=== PATIENT | female | born 1975 | race American Indian/Alaskan Native ===

== ENCOUNTER 2022-03-05 08:23 | Observation (INO) | payer BC, OTHER ==
--- NOTE | 2022-03-02 11:11 | History and Physical Report ---
History of Present Illness History of present illness: 47 yo with pelvic pain and menorrhagia. PT with pelvic pain for around 1- 2 years that is getting worse and she notes it daily, even without her menses. Positive dysmenorrhea. She also notes heavy menses for 7 days each month. No metrorrhagia. That has also been for at least a year. on U/S uterus was WNL except it was 13 cm long and had a questionable finding suggesting a retained "IUD" deep in the myometrium. PT had a BTL in 2005 and has no h/o IUD placement. EMBx attempted in the office but could not get past the internal os. She has also seen her former doctor and noted bruises on her body but only when she get her menses. She says blood work was done but was WNL per pt. Past History Past Medical History: hypertension Past Surgical History: breast surgery (breast reduction), cholecystectomy, other (BTL, umbilical hernia repair.) Family/Genetic History: other (breast/ovarian ca) Social history: no significant social history Medications and Allergies Allergies Allergy/AdvReac Type Severity Reaction Status Date / Time No Known Allergies Allergy Verified 02/25/22 15:23 Home Medications Medication Instructions Recorded Confirmed Last Taken Type amLODIPine [Norvasc] 10 mg PO DAILY 02/25/22 02/25/22 Unknown History hydroCHLOROthiazide [Hctz] 12.5 mg PO QDAY 02/25/22 02/25/22 Unknown History Review of Systems All systems: negative (except HPI) - Physical Exam Cardiovascular: Regular rate, Normal S1, Normal S2 Lungs: Positive: Clear to auscultation, Normal air movement Abdomen: Positive: normal appearance, soft. Negative: tenderness Genitourinary (Female): Positive: normal external genitalia Vulva: both: normal Vagina: Positive: normal moisture. Negative: discharge Cervix: Negative: lesion, discharge Uterus: Positive: enlarged Adnexa: right: tenderness Results Result Diagrams: 03/02/22 10:55 03/02/22 10:59 All other labs normal. Assessment and Plan - Patient Problems (1) Menorrhagia Status: Acute Plan to address problem: PT is for RAH and B/L salpingoophrectomy on 03/05. Pt fully consented for surgery. R/B/A d/w pt including possibility that final path can show malignancy and further surgery would be needed and possibility of needing to do a SUMEET if the manipulator cannot be entered into the uterine cavity. PT also aware and accepts that BSO will result in surgical menopause. PT understands and accepts these and agrees to proceed with surgery. All questions answered. (2) Pelvic pain Status: Acute
[2022-03-02 11:27] LABS: Basophils % (Auto) 0.3 % (0.0-1.8); Eosinophils # (Auto) 0.2 K/mm3 (0.0-0.4); Hematocrit 38.4 % (30.3-42.9); Hemoglobin 12.5 gm/dl (10.1-14.3); Lymphocytes # (Auto) 1.7 K/mm3 (1.2-5.4); Lymphocytes % (Auto) 38.7 % (13.4-35.0); Mean Corpuscular HGB Conc 33 % (30-34); Mean Corpuscular Volume 94 fl (79-97); Monocytes # (Auto) 0.2 K/mm3 (0.0-0.8); Monocytes % (Auto) 5.3 % (0.0-7.3); Platelet Count 279 K/mm3 (140-440); Red Blood Count 4.07 M/mm3 (3.65-5.03); Red Cell Distribution Width 13.6 % (13.2-15.2)
[2022-03-02 11:49] LABS: Alanine Aminotransferase 10 units/L (7-56); Albumin 4.5 g/dL (3.9-5); Calcium 9.5 mg/dL (8.4-10.2); Hemolysis Index 2
[2022-03-02 11:53] LABS: BUN/Creatinine Ratio 14; Blood Urea Nitrogen 11 mg/dL (7-17)
--- NOTE | 2022-03-02 14:23 | Anesthesia Consultation ---
Anesthesia Consult and Med Hx Date of service: 03/05/22 - Airway Anesthetic Teeth Evaluation: Good (Has some missing teeth) ROM Head & Neck: Adequate Mental/Hyoid Distance: Adequate Mallampati Class: Class III Intubation Access Assessment: Probably Good - Pre-Operative Health Status ASA Pre-Surgery Classification: ASA3 Proposed Anesthetic Plan: General Nerve Block: TAP - Pulmonary Hx Smoking: No Hx Sleep Apnea: No - Cardiovascular System Hx Hypertension: Yes - Central Nervous System Hx Psychiatric Problems: No - Gastrointestinal Hx Gastroesophageal Reflux Disease: No - Hematic Hx Sickle Cell Disease: No - Other Systems Hx Alcohol Use: Yes (WINE OCCASIONALLY) Hx Substance Use: No Hx Cancer: No
[~2022-03-05 08:23] MED LIST: ACETAMINOPHEN 500 MG TAB PO ONE; CELECOXIB 200 MG CAP PO NR; LACTATED RINGERS 1,000 ML IV SCH; MAGNESIUM OXIDE 400 MG TAB PO ONE; MIDAZOLAM 2 MG/2 ML INJ IV NR; fentaNYL 100 MCG/2 ML INJ IV ONE
[2022-03-05] MEDS ORDERED: ACETAMINOPHEN 500 MG TAB ONE (08:48)
[2022-03-05] MEDS ORDERED: fentaNYL 100 MCG/2 ML INJ ONE ×2 (08:49→11:39)
[2022-03-05] MEDS ORDERED: MAGNESIUM OXIDE 400 MG TAB PO ONE (08:49)
[2022-03-05] MEDS ORDERED: dexAMETHasone 4 MG/ML VIAL ONE (09:01)
[2022-03-05] MEDS ORDERED: BUPIVACAINE/PF (0.25%) 2.5 MG/ML 30 ML VIAL INFILTRATI ONE (09:01)
[2022-03-05] MEDS ORDERED: ONDANSETRON 4 MG/2 ML INJ IV PRN (09:02)
[2022-03-05] MEDS ORDERED: HYDROmorphone 1 MG/1 ML INJ IV PRN (09:02)
--- NOTE | 2022-03-05 09:02 | Anesthesia Day of Surgery ---
Anesthesia Day of Surgery - Day of Surgery Patient Examined: Yes Patient H&P Reviewed: Yes Patient is NPO: Yes
[2022-03-05] MEDS ORDERED: diphenhydrAMINE 50 MG/ML VIAL ONE (09:08)
[2022-03-05] MEDS ORDERED: GENTAMICIN/NS 80 MG/100 ML 100 ML IV SCH (11:00)
[2022-03-05] MEDS ORDERED: GENTAMICIN 400 MG in SODIUM CHLORIDE 0.9% 100 ML IV SCH (11:00)
[2022-03-05] MEDS ORDERED: ROCURONIUM 50 MG/5 ML INJ IV ONE ×2 (11:38→12:28)
[2022-03-05] MEDS ORDERED: LIDOCAINE MPF (2%) 20 MG/1 ML VIAL 5 ML ONE (11:38)
[2022-03-05] MEDS ORDERED: propofoL 200 MG/20 ML VIAL IV ONE ×2 (11:39→14:24)
[2022-03-05] MEDS ORDERED: NEOMY 40 MG/POLYMYXIN B 200,000 UNITS/ML (GU) AMPULE IR ONE ×2 (11:43→12:27)
[2022-03-05] MEDS ORDERED: LACTATED RINGERS 1,000 ML ONE ×2 (12:24→15:04)
[2022-03-05] MEDS ORDERED: WATER FOR IRRIG STERILE 1,500 ML BOTTLE IR ONE (12:27)
[2022-03-05] MEDS ORDERED: SODIUM CHLORIDE 0.9% IRR 1,500 ML BOTTLE IR ONE (12:27)
[2022-03-05] MEDS ORDERED: SODIUM CHLORIDE 0.9% IRRIG SOLN 2000 ML IR ONE (12:27)
[2022-03-05] MEDS ORDERED: ONDANSETRON 4 MG/2 ML INJ ONE (12:30)
[2022-03-05] MEDS ORDERED: KETOROLAC 30 MG/1 ML INJ ONE (12:30)
[2022-03-05] MEDS ORDERED: dexAMETHasone 20 MG/5 ML VIAL ONE (12:30)
[2022-03-05] MEDS ORDERED: PHENYLEPHRINE/NS 1,000 MCG/10 ML SYRINGE (OR USE) IV ONE (12:40)
[2022-03-05] MEDS ORDERED: GLYCOPYRROLATE 0.4 MG/2 ML INJ ONE (12:44)
[2022-03-05] MEDS ORDERED: ACETAMINOPHEN 325 MG TAB PO PRN (15:00)
[2022-03-05] MEDS ORDERED: SUGAMMADEX SODIUM 200 MG/2 ML VIAL IV ONE (15:02)
--- NOTE | 2022-03-05 15:05 | Post Operative Note ---
Date of procedure: 03/05/22 Pre-op diagnosis: pelvic pain and menorrhagia Post-op diagnosis: same Findings: Patient had an enlarged globular uterus suggestive of adenomyosis. It was around 12 to 13 weeks in size. Normal tubes and ovaries. Remainder of the pelvic anatomy was within normal limits with no significant scarring in the pelvis. Patient had some bowel and omental scarring in the omental region as patient had a history of an umbilical hernia repair. Patient also with a history of a cholecystectomy and had omental scarring in the right upper quadrant as well. Procedure: Indication: Patient is a 47-year-old G5, P5 with pelvic pain and menorrhagia. Procedure: Robotic assisted hysterectomy, bilateral salpingo-oophorectomy. Patient was taken to the operating room and prepped and draped in the usual fashion. Attention was first turned vaginally for placement of the V care cup uterine manipulator. This was done in the usual fashion including anchoring stitches at 12:00 and 6:00 of the cervical stroma with 0 Vicryl. The large Vcar e cup was chosen and the manipulator was placed successfully and without difficulty. Attention was now turned abdominally. In the left upper quadrant about 2 fingerbreadths inferior to the costal margin in the midclavicular line, an 8 mm incision was made. The 8 mm trocar was successfully placed and the placement was confirmed with the camera. Attention was now turned to the placement of the 3 robotic trocars. The 2 lower quadrant ones were about 2 cm superior and medial to the ASIS on each side. These were 8 mm ports. They were placed under direct visualization with without difficulty. At this point, attention was turned to the above-noted adhesions under the umbilicus oh region. The bowel and omentum that was adhered there were all released using blunt dissection using blunt probe. The adhesions were able to be cleared without difficulty. At this point, the 12 mm umbilical trocar site was also placed under direct visualization successfully and without difficulty but was placed around 3 cm superior to the umbilicus itself. At this point the patient was placed in steep Trendelenburg. The robot was docked to the trochars. At this point I broke scrub and proceeded to the da Maksim console. First the pelvis was assessed and findings noted above. Good ureteral peristalsis was noted bilaterally both at the beginning of the case and at the end of the case. Attention was first turned to the left adnexa where the fallopian tube was resected from its attachments using the robotic vessel sealer. This dissection was carried to the round ligament. The ovarian ligame nt was also clamped cauterized and resected with the vessel sealer. The round ligament was also clamped cauterized and cut with the vessel sealer. Good hemostasis was noted. This was then done in the exact same fashion on the right side with equal success and good hemostasis. At this point attention was turned the bladder flap which was created using EndoShears. Good hemostasis noted. The anterior colpotomy ring indentation was then identified from the V care cup. Colpotomy incision was made until the green Vcare cup was visualized. This incision was then extended bilaterally. Attention was then turned posteriorly where the posterior colpotomy ring indentation was identified and the colpotomy incision was made. The colpotomy incision posteriorly was then extended bilaterally. The posterior peritoneal flap was created at this point bilaterally. Good hemostasis noted. At this point attention was turned to the the uterine vasculature which was clamped cauterized and cut using the vessel sealer on both sides. After this was completed the colpotomy was completed at the 3:00 and 9:00 positions. At this point the colpotomy was completed 360 degrees. At this point the uterus and tubes were successfully removed vaginally without difficulty. Attention was turned to closure of the vaginal cuff which was done using 0 V-Loc in a running fashion. Vaginal cuff was closed successfully and without difficulty. At this point the pelvis was well irrigated. The abdomen was desufflated and good hemostasis was noted. Abdomen was reinsufflated. Surgicel powder was then applied to all the areas of dissection. At this point the robot was undocked from the trochars. I scrubbed back in and first inspected the vaginal cuff both visually and with palpation. Good hemostasis noted and good integrity of the cuff was noted. Laparoscopically good hemostasis still noted throughout. The 12 mm trocar was removed and that site was closed using the Rafa Miller device and a 0 Vicryl. At this point the abdomen was fully desufflated. The other 3 trochars were removed and those trocar sites were closed using 4-0 Vicryl in a subcuticular fashion as well as the 12 mm site. The procedure was concluded at this point. At this point, I assessed her left upper thigh where a small 1 to 2 mm laceration was noted due to a scalpel accidentally dropped at that site. Only a small amount of oozing was noted which was controlled with pressure. A Band-Aid placed on that side. Patient tolerated the procedure well. All instrument lap counts were correct. Patient taken to the recovery room in stable condition. Anesthesia: GETA Surgeon: DAVID ROBIN Automobile Painter: AMY AREVALO Estimated blood loss: other (75 cc) Pathology: list (uterus, tubes, ovaries) Specimen disposition: to lab Condition: stable Disposition: PACU
[2022-03-05] MEDS: HYDROmorphone 1 MG/1 ML INJ IV PRN ×2 (15:37→15:47)
--- NOTE | 2022-03-05 17:24 | Post Anesthesia Evaluation ---
- Post Anesthesia Evaluation Patient Participated: Yes Airway Patent: Yes Stable Respiratory Function: Yes Nausea/Vomiting: No Temp > 96.8F: Yes Pain Manageable: Yes Adequeate Hydration: Yes Anesthesia Complications: No Block Receding Appropriately: Yes Patient on Ventilator: No
[2022-03-05] MEDS: hydroCHLOROthiazide 12.5 MG CAP PO SCH (17:45)
[2022-03-05] MEDS: IBUPROFEN 800 MG TAB PO PRN (17:45)
[2022-03-05] MEDS: amLODIPine 10 MG TAB PO SCH (17:45)
[2022-03-05] MEDS: oxyCODONE /ACETAMINOPHEN 5-325MG TAB PO PRN (21:13)
[2022-03-06] MEDS: IBUPROFEN 800 MG TAB PO PRN ×2 (00:45→09:51)
[2022-03-06] MEDS: oxyCODONE /ACETAMINOPHEN 5-325MG TAB PO PRN ×3 (03:04→22:14)
[2022-03-06 05:58] LABS: Hemoglobin 11.3 gm/dl (10.1-14.3)
--- NOTE | 2022-03-06 09:42 | Progress Note ---
Subjective - Subjective Date of service: 03/06/22 Interval history: meets discharge criteria ambulatory toelrating general diet +ve flatus no N/V PE: incision c/d/i FUP outpatient in 7 days Yocasta Luis MD Patient reports: appetite normal, voiding normally, pain well controlled, ambulating normally Objective - Vital Signs Latest vital signs: Vital Signs Temp Pulse Resp Resp BP Pulse Ox 03/06/22 04:26 98.0 F 74 18 103/59 96 03/06/22 03:04 18 18 03/06/22 00:45 18 18 03/06/22 00:36 97.8 F 74 18 120/69 94 03/05/22 21:13 18 18 03/05/22 21:02 98.0 F 75 18 127/85 97 03/05/22 20:00 98 03/05/22 17:45 16 03/05/22 17:00 16 97 03/05/22 16:34 97.4 F L 77 16 114/81 98 03/05/22 16:17 14 03/05/22 16:15 97.5 F L 70 14 110/65 98 03/05/22 16:07 18 03/05/22 16:00 82 15 109/67 97 03/05/22 15:47 15 03/05/22 15:45 75 16 110/67 97 03/05/22 15:37 18 03/05/22 15:30 76 18 104/64 99 03/05/22 15:25 78 18 103/60 99 03/05/22 15:20 81 19 108/70 98 03/05/22 15:14 97.3 F L 90 20 113/72 98 03/05/22 10:18 16 03/05/22 09:55 16 03/05/22 09:48 65 13 120/71 98 Intake and Output 03/05/22 03/06/22 03/06/22 23:59 07:59 15:59 Intake Total 100 200 Output Total 800 950 Balance -700 -750 Intake: Oral 100 200 Output: Urine 800 950 Indwelling Catheter 400 400 Uretheral (Tovar) 400 550 Other: Total, Intake Amount 100 200 Total, Output Amount 400 400 Voiding Method Indwelling Catheter
--- NOTE | 2022-03-06 09:43 | Discharge Summary ---
Providers - Providers Date of Admission: 03/05/22 14:53 Date of discharge: 03/06/22 Attending physician: DAVID ROBIN Primary care physician: YUNG LANDAVERDE Hospitalization Reason for admission: other (robotic hysterectomy) Condition at discharge: Stable Disposition: 01 HOME / SELF CARE / HOMELESS Plan - Discharge Medications Prescriptions: Ibuprofen [Motrin 800 MG tab] 800 mg PO Q8H PRN #30 tablet PRN Reason: Pain, Moderate (4-6) oxyCODONE /ACETAMINOPHEN [Percocet 5/325 mg] 1 tab PO Q6H PRN #30 tablet PRN Reason: Pain, Moderate (4-6) - Provider Discharge Summary Activity: no sex for 6 weeks Additional instructions: [] Smoking cessation referral if applicable(refer to patient education folder for contact #) [] Refer to [facility] Booklet Call your doctor immediately for: * Fever > 100.5 * Heavy vaginal bleeding ( >1 pad per hour) * Severe persistent headache * Shortness of breath * Reddened, hot, painful area to leg or breast * Drainage or odor from incision. * Keep incision clean and dry at all times and follow doctor's instructions regarding bathing/showering - Follow up plan Follow up: DAVID ROBIN MD [Staff Physician] - 14 Days
[2022-03-06] MEDS: hydroCHLOROthiazide 12.5 MG CAP PO SCH (10:06)
[2022-03-06] MEDS: amLODIPine 10 MG TAB PO SCH (10:06)
[2022-03-06 21:58] LABS: Basophils % (Auto) 0.1 % (0.0-1.8); Eosinophils % (Auto) 0.1 % (0.0-4.3); Hematocrit 37.4 % (30.3-42.9); Hemoglobin 12.2 gm/dl (10.1-14.3); Lymphocytes # (Auto) 1.4 K/mm3 (1.2-5.4); Lymphocytes % (Auto) 14.7 % (13.4-35.0); Mean Corpuscular HGB Conc 33 % (30-34); Mean Corpuscular Volume 96 fl (79-97); Monocytes # (Auto) 0.2 K/mm3 (0.0-0.8); Platelet Count 252 K/mm3 (140-440); Red Blood Count 3.92 M/mm3 (3.65-5.03); Red Cell Distribution Width 13.7 % (13.2-15.2)
[2022-03-06] MEDS ORDERED: LACTATED RINGERS 1,000 ML IV ONE (23:30)
[2022-03-07] MEDS: IBUPROFEN 800 MG TAB PO PRN ×2 (00:18→18:15)
[2022-03-07] MEDS: oxyCODONE /ACETAMINOPHEN 5-325MG TAB PO PRN (06:04)
--- NOTE | 2022-03-07 07:30 | Progress Note ---
Subjective - Subjective Date of service: 03/07/22 Interval history: ambulatory toelrating general diet +ve flatus no N/V PE: incision c/d/i Repeat hemoglobin stable DC Tovar catheter, recommend bladder training DC to home in the afternoon if patient can void independently Yocasta Luis MD Patient reports: appetite normal, pain well controlled, flatus, ambulating normally Objective - Vital Signs Latest vital signs: Vital Signs Temp Pulse Resp Resp BP Pulse Ox 03/07/22 06:19 98.2 F 94 H 18 103/66 95 03/07/22 06:07 16 03/07/22 06:04 16 03/07/22 00:18 18 03/07/22 00:02 98.2 F 85 18 105/62 93 03/06/22 22:14 18 18 03/06/22 19:47 98.4 F 88 18 105/57 94 03/06/22 19:30 99 03/06/22 16:31 98.2 F 90 18 103/65 98 03/06/22 14:49 16 03/06/22 12:39 98.1 F 82 18 102/63 97 03/06/22 10:53 97 03/06/22 09:51 16 03/06/22 08:03 98.5 F 77 18 100/70 96 Intake and Output 03/06/22 03/06/22 03/07/22 15:59 23:59 07:59 Intake Total 800 Output Total 300 1300 Balance -300 -500 Intake: Oral 800 Output: Urine 300 1300 Indwelling Catheter 700 Self-Catheterization 300 Uretheral (Tovar) 600 Other: Total, Intake Amount 200 Total, Output Amount 300 200 Voiding Method Toilet - Labs Labs: Abnormal lab results 03/06/22 Range/Units 20:48 Seg Neutrophils % 83.1 H (40.0-70.0) %
[2022-03-07] MEDS ORDERED: ONDANSETRON 4 MG/2 ML INJ IV PRN (07:56)
[2022-03-07] MEDS: LACTATED RINGERS 1,000 ML IV SCH ×2 (10:26→11:40)
[2022-03-07] MEDS: hydroCHLOROthiazide 12.5 MG CAP PO SCH (10:45)
[2022-03-07] MEDS: amLODIPine 10 MG TAB PO SCH (10:45)
[2022-03-07] MEDS ORDERED: FUROSEMIDE 40 MG/4 ML INJ IV ONE (11:44)
[2022-03-07] MEDS ORDERED: FUROSEMIDE 20 MG/2 ML INJ IV ONE (12:00)
--- NOTE | 2022-03-07 16:08 | Event Note ---
Date: 03/07/22 adequate urine output after IV hydration. DC núñez Does not have urge to void: poor pain controll a contributing facotr. Will keep overnight and DC home in AM Stable from a postop standpoint. Yocasta Luis MD
[2022-03-07 16:16] VITALS: BP 106/65
== END 2022-03-07 19:05 | disposition home or self-care (01) ==
LOC: OR 08:23 → OB 14:53
PROVIDERS: ADMIT Obstetrics & Gynecology; ATTEND Obstetrics & Gynecology
DX: N92.0 Excessive and frequent menstruation with regular cycle (principal); Z20.822 Contact with and (suspected) exposure to COVID-19; R10.2 Pelvic and perineal pain; I10 Essential (primary) hypertension; Z90.49 Acquired absence of other specified parts of digestive tract; Z98.51 Tubal ligation status; Z79.899 Other long term (current) drug therapy; Z98.890 Other specified postprocedural states; Z90.710 Acquired absence of both cervix and uterus
CPT/HCPCS: 36415; 58554; 64488; 80053; 84703; 85014; 85018; 85025; 86850; 86900; 86901; 88307; 96374; 96375; G0378; J1100; J1170; J1200; J1580; J1815; J1885; J1940; J2250; J2370; J2405; J2704; J3010; J3490; J7120; J7502; S2900; U0003; 64450

== ENCOUNTER 2022-03-08 19:41 | Emergency (ER) | payer BC, OTHER ==
[2022-03-08 20:42] VITALS: BP 133/96
[2022-03-08 20:58] LABS: Basophils % (Auto) 0.1 % (0.0-1.8); Eosinophils # (Auto) 0.1 K/mm3 (0.0-0.4); Eosinophils % (Auto) 1.2 % (0.0-4.3); Hematocrit 35.8 % (30.3-42.9); Lymphocytes # (Auto) 1.4 K/mm3 (1.2-5.4); Lymphocytes % (Auto) 17.8 % (13.4-35.0); Mean Corpuscular HGB Conc 34 % (30-34); Mean Corpuscular Volume 93 fl (79-97); Monocytes # (Auto) 0.3 K/mm3 (0.0-0.8); Monocytes % (Auto) 3.7 % (0.0-7.3); Platelet Count 266 K/mm3 (140-440); Red Blood Count 3.83 M/mm3 (3.65-5.03); Red Cell Distribution Width 13.6 % (13.2-15.2)
[2022-03-08 21:19] LABS: Alanine Aminotransferase 20 units/L (7-56); Albumin 3.9 g/dL (3.9-5); BUN/Creatinine Ratio 9; Blood Urea Nitrogen 9 mg/dL (7-17); Calcium 9.3 mg/dL (8.4-10.2); Hemolysis Index 3
[2022-03-08 21:42] LABS: Bilirubin,Urine NEG (Negative); Blood,Urine LG (Negative); Color,Urine Amber (Yellow); Mucus,Urine 3+ /HPF
[2022-03-08 21:46] LABS: Protein,Urine >500 mg/dL (Negative)
[2022-03-09] MEDS ORDERED: SODIUM CHLORIDE 0.9% 1000 ML 1,000 ML IV ONE ×2 (00:15→00:30)
[2022-03-09] MEDS ORDERED: ONDANSETRON 4 MG/2 ML INJ IV ONE (00:15)
[2022-03-09] MEDS ORDERED: HYDROmorphone 1 MG/1 ML INJ IV ONE (00:15)
[2022-03-09] MEDS ORDERED: diphenhydrAMINE 50 MG/ML VIAL IV ONE (00:16)
--- NOTE | 2022-03-09 03:11 | Emergency Department Report ---
ED N/V/D HPI - General Chief complaint: Abdominal Pain Stated complaint: POST SURGERY COMPLICATIONS/VOMITING PUI?: No Source: patient Mode of arrival: Ambulatory Limitations: No Limitations - History of Present Illness Initial comments: Patient is a 47-year-old -Spanish female with a history of hypertension and who is approximately 3 days status post partial hysterectomy as surgery who presents to the ED with complaint of acute onset persistent intractable nausea and vomiting for the last 2 days, worse in the last 8 hours. Patient states th at she was discharged home on narcotic pain medications and has not been able to keep anything down including medications for pain. Patient however states that she was never given any prescription for antiemetics. Patient also complains of diffuse abdominal pain especially on the surgical sites due to intractable nausea and vomiting. Patient denies dizziness, syncope, fever, chills, diarrhea, dysuria, urinary frequency and urgency, low back pain, chest pain or shortness of breath or hematemesis. MD complaint: nausea, vomiting, abdominal pain -: Sudden, days(s) (2) Description of Vomiting: food contents, watery, bilious Associated Abdominal Pain: Yes (Diffuse) Location: periumbillcal Radiation: none Severity: moderate, severe Pain Scale: 7 Quality: cramping, sharp Consistency: constant Improves with: none Worsens with: eating, vomiting Context: recent surgery/procedure, history of abdominal surg (Partial laparoscopic hysterectomy 3 days ago) Associated Symptoms: denies other symptoms, loss of appetite, malaise, nausea/vomiting. denies: myalgias, chest pain, cough, diaphoresis, fever/chills, headaches, rash, dysuria, shortness of breath, syncope, other - Related Data Home Medications Medication Instructions Recorded Confirmed Last Taken amLODIPine [Norvasc] 10 mg PO DAILY 02/25/22 03/05/22 03/04/22 09:00 hydroCHLOROthiazide [Hctz] 12.5 mg PO QDAY 02/25/22 03/05/22 03/04/22 09:00 Previous Rx's Medication Instructions Recorded Last Taken Type Ibuprofen [Motrin 800 MG tab] 800 mg PO Q8H PRN #30 tablet 03/05/22 Unknown Rx oxyCODONE /ACETAMINOPHEN [Percocet 1 tab PO Q6H PRN #30 tablet 03/05/22 Unknown Rx 5/325 mg] Dicyclomine [Bentyl] 20 mg PO Q6H #30 tablet 03/09/22 Unknown Rx Famotidine [Pepcid] 20 mg PO BID #60 tablet 03/09/22 Unknown Rx Ondansetron [Zofran Odt] 4 mg PO Q6HR PRN #20 tab.rapdis 03/09/22 Unknown Rx Potassium Chloride [Klor-Con M20] 20 meq PO Q12H #20 tab 03/09/22 Unknown Rx Promethazine [Phenergan] 25 mg AL Q6HR PRN #15 supp.rect 03/09/22 Unknown Rx traMADoL [Ultram] 50 mg PO Q6HR PRN #12 tablet 03/09/22 Unknown Rx Allergies Allergy/AdvReac Type Severity Reaction Status Date / Time acetaminophen [From Percocet] AdvReac Mild Itching Verified 03/08/22 20:42 oxycodone [From Percocet] AdvReac Mild Itching Verified 03/08/22 20:42 Penicillins AdvReac Itching Verified 03/08/22 20:42 ED Review of Systems ROS: Stated complaint: POST SURGERY COMPLICATIONS/VOMITING Other details as noted in HPI Constitutional: denies: chills, fever Eyes: denies: eye pain, eye discharge, vision change ENT: denies: ear pain, throat pain Respiratory: denies: cough, shortness of breath, wheezing Cardiovascular: denies: chest pain, palpitations Endocrine: no symptoms reported Gastrointestinal: abdominal pain, nausea, vomiting. denies: diarrhea Genitourinary: denies: urgency, dysuria, discharge Musculoskeletal: denies: back pain, joint swelling, arthralgia Skin: denies: rash, lesions Neurological: denies: headache, weakness, paresthesias Psychiatric: denies: anxiety, depression Hematological/Lymphatic: denies: easy bleeding, easy bruising ED Past Medical Hx - Past Medical History Previous Medical History?: Yes Hx Hypertension: Yes Hx Congestive Heart Failure: No Hx Diabetes: No Hx Sickle Cell Disease: No Hx Asthma: No Hx COPD: No Hx HIV: No - Surgical History Past Surgical History?: Yes Hx Breast Surgery: Yes (BILATERAL BREAST REDUCTION) Additional Surgical History: hysterectomy - Social History Smoking Status: Never Smoker Substance Use Type: None - Medications Home Medications: Home Medications Medication Instructions Recorded Confirmed Last Taken Type amLODIPine [Norvasc] 10 mg PO DAILY 02/25/22 03/05/22 03/04/22 09:00 History hydroCHLOROthiazide [Hctz] 12.5 mg PO QDAY 02/25/22 03/05/22 03/04/22 09:00 History Ibuprofen [Motrin 800 MG tab] 800 mg PO Q8H PRN #30 tablet 03/05/22 Unknown Rx oxyCODONE /ACETAMINOPHEN [Percocet 1 tab PO Q6H PRN #30 tablet 03/05/22 Unknown Rx 5/325 mg] Dicyclomine [Bentyl] 20 mg PO Q6H #30 tablet 03/09/22 Unknown Rx Famotidine [Pepcid] 20 mg PO BID #60 tablet 03/09/22 Unknown Rx Ondansetron [Zofran Odt] 4 mg PO Q6HR PRN #20 tab.rapdis 03/09/22 Unknown Rx Potassium Chloride [Klor-Con M20] 20 meq PO Q12H #20 tab 03/09/22 Unknown Rx Promethazine [Phenergan] 25 mg AL Q6HR PRN #15 supp.rect 03/09/22 Unknown Rx traMADoL [Ultram] 50 mg PO Q6HR PRN #12 tablet 03/09/22 Unknown Rx ED Physical Exam - General Limitations: No Limitations General appearance: alert, in no apparent distress - Head Head exam: Present: atraumatic, normocephalic, normal inspection - Eye Eye exam: Present: normal appearance, PERRL, EOMI Pupils: Present: normal accommodation - ENT ENT exam: Present: normal exam, normal orophraynx, mucous membranes moist, TM's normal bilaterally, normal external ear exam - Neck Neck exam: Present: normal inspection, full ROM. Absent: tenderness - Respiratory Respiratory exam: Present: normal lung sounds bilaterally. Absent: respiratory distress, wheezes, chest wall tenderness, accessory muscle use, decreased breath sounds, other - Cardiovascular Cardiovascular Exam: Present: regular rate, normal rhythm, normal heart sounds. Absent: systolic murmur, diastolic murmur, rubs, gallop - GI/Abdominal GI/Abdominal exam: Present: soft, tenderness (Palpable mild localized abdominal tenderness on the surgical wounds), normal bowel sounds. Absent: guarding, rebound, hyperactive bowel sounds, hypoactive bowel sounds, organomegaly, bruit - Extremities Exam Extremities exam: Present: normal inspection, full ROM, normal capillary refill. Absent: tenderness - Back Exam Back exam: Present: normal inspection, full ROM. Absent: tenderness, CVA tenderness (R), CVA tenderness (L), muscle spasm, paraspinal tenderness, vertebral tenderness - Neurological Exam Neurological exam: Present: alert, oriented X3, CN II-XII intact, normal gait, reflexes normal - Psychiatric Psychiatric exam: Present: normal affect, normal mood - Skin Skin exam: Present: warm, dry, intact, normal color. Absent: rash ED Course Vital Signs 03/08/22 20:39 Temperature 99.4 F Pulse Rate 137 H Respiratory 18 Rate Blood Pressure 133/96 [Right] O2 Sat by Pulse 95 Oximetry ED Medical Decision Making - Lab Data Result diagrams: 03/08/22 20:44 03/08/22 20:44 - Medical Decision Making This is a 47-year-old -Spanish female with a history of hypertension and who is approximately 3 days status post partial hysterectomy as surgery who presents to the ED with complaint of acute onset persistent intractable nausea and vomiting for the last 2 days, worse in the last 8 hours. Patient states that she was discharged home on narcotic pain medications and has not been able to keep anything down including medications for pain. Patient however states that she was never given any prescription for antiemetics. Patient also compl ains of diffuse abdominal pain especially on the surgical sites due to intractable nausea and vomiting. In the ED, patient is alert and oriented x3 and is not in any distress. Patient is tachycardic but afebrile in triage. Lab test results were reviewed and are all nonactionable except for mild h yponatremia 132 mmol/L and hypokalemia of 3.0 mmol/L. Patient was treated for nausea and vomiting, also given antacids and pain medications and normal saline 1 L IV bolus x1. On reevaluation, patient's pain is well controlled medication. Nausea and vomiting also resolved, and patient passed oral fluid challenge in the ED. Patient was discharged home on antiemetic and antacid medications and advised to maintain a clear liquid diet for 12 to 24 hours, take medications as needed for nausea and vomiting and pain and follow-up with the [facility] physician or primary care physician in 5 to 7 days for reevaluation. Patient was also advised to return to the ED immediately if symptoms get worse with - Differential Diagnosis Gastroenteritis; dehydration; narcotic vomiting; surgical complication Critical care attestation.: If time is entered above; I have spent that time in minutes in the direct care of this critically ill patient, excluding procedure time. ED Disposition Clinical Impression: Intractable nausea and vomiting, Acute postoperative abdominal pain, Acute hypokalemia Disposition: HOME / SELF CARE / HOMELESS Is pt being admited?: No Does the pt Need Aspirin: No Condition: Stable Instructions: Abdominal Pain (ED), Abdominal Pain, Adult, [id number], Nausea and Vomiting, Adult, [id number], Hypokalemia Additional Instructions: All lab test results were reviewed and are all nonactionable. Therefore take medication as needed for nausea, vomiting and pain, maintain a clear liquid diet for 12 to 24 hours, and follow-up with your primary care physician in 5 to 7 days for reevaluation. Return to the ED immediately if symptoms get worse Prescriptions: Dicyclomine [Bentyl] 20 mg PO Q6H #30 tablet Potassium Chloride [Klor-Con M20] 20 meq PO Q12H #20 tab Famotidine [Pepcid] 20 mg PO BID #60 tablet Promethazine [Phenergan] 25 mg AL Q6HR PRN #15 supp.rect PRN Reason: Nausea traMADoL [Ultram] 50 mg PO Q6HR PRN #12 tablet PRN Reason: Pain Ondansetron [Zofran Odt] 4 mg PO Q6HR PRN #20 tab.rapdis PRN Reason: Nausea Referrals: [facility] [Provider Group] - 3-5 Days Time of Disposition: 03:10 Print Language: [place]
[2022-03-09] MEDS ORDERED: POTASSIUM CHLORIDE ER 20 MEQ TAB PO ONE (03:14)
== END 2022-03-09 04:16 | disposition home or self-care (01) ==
LOC: ED 19:41
DX: R11.2 Nausea with vomiting, unspecified (principal); G89.18 Other acute postprocedural pain; E87.6 Hypokalemia; I10 Essential (primary) hypertension
CPT/HCPCS: 36415; 80053; 81001; 85025; 87086; 96361; 96374; 96375; 99283; J1170; J1200; J2405; J7030

== ENCOUNTER 2022-05-10 10:12 | Outpatient (CLI) | payer BC, OTHER ==
[2022-05-10] MEDS ORDERED: LIDOCAINE (4%) 40 MG/ML TOPICAL SOLN 50 ML BOTTLE TP ONE (10:58)
[2022-05-10] MEDS ORDERED: SILVER NITRATE APPLICATOR 1 EA TP ONE (11:06)
== END 2022-05-10 10:13 | disposition home or self-care (01) ==
LOC: WOUND 10:12
PROVIDERS: ATTEND Surgery
DX: T81.89XA Other complications of procedures, not elsewhere classified, initial encounter (principal); S31.102A Unspecified open wound of abdominal wall, epigastric region without penetration into peritoneal cavity, initial encounter; I10 Essential (primary) hypertension; K21.9 Gastro-esophageal reflux disease without esophagitis; I82.421 Acute embolism and thrombosis of right iliac vein; Z90.710 Acquired absence of both cervix and uterus; Z90.79 Acquired absence of other genital organ(s); Z79.899 Other long term (current) drug therapy; X58.XXXA Exposure to other specified factors, initial encounter; Y93.89 Activity, other specified; Y92.89 Other specified places as the place of occurrence of the external cause; Y99.8 Other external cause status; Y92.238 Other place in hospital as the place of occurrence of the external cause; Y83.8 Other surgical procedures as the cause of abnormal reaction of the patient, or of later complication, without mention of misadventure at the time of the procedure

== ENCOUNTER 2022-05-27 10:54 | Outpatient (CLI) | payer BC, OTHER | END 2022-05-27 10:55 | disposition home or self-care (01) | LOC: WOUND 10:54 | PROVIDERS: ATTEND Surgery | DX: T81.89XD Other complications of procedures, not elsewhere classified, subsequent encounter (principal); S31.602 Unspecified open wound of abdominal wall, epigastric region with penetration into peritoneal cavity; I10 Essential (primary) hypertension; K21.9 Gastro-esophageal reflux disease without esophagitis; Z90.710 Acquired absence of both cervix and uterus; Z79.899 Other long term (current) drug therapy; X58.XXXD Exposure to other specified factors, subsequent encounter; Y83.8 Other surgical procedures as the cause of abnormal reaction of the patient, or of later complication, without mention of misadventure at the time of the procedure | CPT/HCPCS: 99213; G0463 ==

== ENCOUNTER 2022-06-07 09:50 | Outpatient (CLI) | payer BC, OTHER ==
[2022-06-07] MEDS ORDERED: SILVER NITRATE APPLICATOR 1 EA TP ONE (11:00)
== END 2022-06-07 09:51 | disposition home or self-care (01) ==
LOC: WOUND 09:50
PROVIDERS: ATTEND Surgery
DX: T81.89XD Other complications of procedures, not elsewhere classified, subsequent encounter (principal); S31.102D Unspecified open wound of abdominal wall, epigastric region without penetration into peritoneal cavity, subsequent encounter; I10 Essential (primary) hypertension; K21.9 Gastro-esophageal reflux disease without esophagitis; Z90.710 Acquired absence of both cervix and uterus; Z90.79 Acquired absence of other genital organ(s); Z87.898 Personal history of other specified conditions; Z79.899 Other long term (current) drug therapy; X58.XXXD Exposure to other specified factors, subsequent encounter; Y83.8 Other surgical procedures as the cause of abnormal reaction of the patient, or of later complication, without mention of misadventure at the time of the procedure
CPT/HCPCS: 17250

== ENCOUNTER 2022-06-21 11:10 | Outpatient (CLI) | payer BC, OTHER ==
[2022-06-21] MEDS ORDERED: LIDOCAINE (4%) 40 MG/ML TOPICAL SOLN 50 ML BOTTLE TP ONE (11:41)
[2022-06-21] MEDS ORDERED: SILVER NITRATE APPLICATOR 1 EA TP ONE (11:41)
== END 2022-06-21 11:11 | disposition home or self-care (01) ==
LOC: WOUND 11:10
PROVIDERS: ATTEND Surgery
DX: T81.89XD Other complications of procedures, not elsewhere classified, subsequent encounter (principal); S31.602 Unspecified open wound of abdominal wall, epigastric region with penetration into peritoneal cavity; I10 Essential (primary) hypertension; K21.9 Gastro-esophageal reflux disease without esophagitis; Z90.710 Acquired absence of both cervix and uterus; Z90.79 Acquired absence of other genital organ(s); Z87.898 Personal history of other specified conditions; Z79.899 Other long term (current) drug therapy; X58.XXXD Exposure to other specified factors, subsequent encounter; Y83.8 Other surgical procedures as the cause of abnormal reaction of the patient, or of later complication, without mention of misadventure at the time of the procedure
CPT/HCPCS: 99214; G0463

== ENCOUNTER 2022-07-12 13:44 | Outpatient (CLI) | payer BC, OTHER ==
[2022-07-12] MEDS ORDERED: LIDOCAINE (4%) 40 MG/ML TOPICAL SOLN 50 ML BOTTLE TP ONE (14:05)
== END 2022-07-12 13:45 | disposition home or self-care (01) ==
LOC: WOUND 13:44
PROVIDERS: ATTEND Surgery
DX: T81.89XD Other complications of procedures, not elsewhere classified, subsequent encounter (principal); S31.602 Unspecified open wound of abdominal wall, epigastric region with penetration into peritoneal cavity; I10 Essential (primary) hypertension; K21.9 Gastro-esophageal reflux disease without esophagitis; Z90.710 Acquired absence of both cervix and uterus; Z90.79 Acquired absence of other genital organ(s); Z87.898 Personal history of other specified conditions; Z79.899 Other long term (current) drug therapy; X58.XXXD Exposure to other specified factors, subsequent encounter; Y83.8 Other surgical procedures as the cause of abnormal reaction of the patient, or of later complication, without mention of misadventure at the time of the procedure